=== PATIENT | female | born 1950 | race African-American/Black ===

== ENCOUNTER 2018-05-13 11:42 | Emergency (ER) | payer OTHER ==
[~2018-05-13] VITALS: Ht 170.2 cm; Wt 117.9 kg
[~2018-05-13 11:42] MED LIST: FLONASE 0.05%50 MCG NASAL; NORCO 5-325 TA1 EACH PO; SINGULAIR 10 MG10 M1 PO; VASOTEC10 MG PO; ZYRTEC10 MG PO
[2018-05-13 12:35] LABS: BASOPHILS 0.7 % (0.0-2.0); EOSINOPHILS 6.9 % (0.0-3.0); HEMATOCRIT 39.7 % (37.0-47.0); HEMOGLOBIN 13.2 gm/dL (12.0-15.0); LYMPHOCYTES 32.7 % (24.0-44.0); MCH 27.2 pg (26.0-34.0); MCHC 33.2 g/dL (28.0-37.0); MONOCYTES 8.7 % (1.0-8.0); PLATELET COUNT 205 thou/uL (150-400); RBC 4.84 mil/uL (4.20-5.00); RDW 14.6 % (10.5-14.5); WBC 9.8 thou/uL (4.0-11.0)
[2018-05-13 12:42] LABS: CALCIUM 9.4 mg/dL (8.5-10.1); CREATININE 0.9 mg/dL (0.6-1.0); POTASSIUM 3.6 mmol/L (3.5-5.1)
[2018-05-13 13:49] LABS: URINE BILIRUBIN NEGATIVE (Negative); URINE BLOOD NEGATIVE (Negative); URINE CLARITY CLEAR; URINE COLOR YELLOW; URINE GLUCOSE-RANDOM* NEGATIVE (Negative); URINE KETONES NEGATIVE (Negative); URINE LEUKOCYTES-REFLEX NEGATIVE (Negative); URINE NITRITE-REFLEX NEGATIVE (Negative); URINE PROTEIN (DIPSTICK) NEGATIVE (Negative); URINE SPECIFIC GRAVITY >= 1.030 (1.005-1.035); URINE UROBILINOGEN 0.2 E.U./dl (0.2-1.0)
[2018-05-13] MEDS ORDERED: NORFLEX100 MG PO (14:08)
[2018-05-13] MEDS ORDERED: MOBIC7.5 MG PO (14:08)
[2018-05-13 14:30] VITALS: BP 188/92
== END 2018-05-13 14:30 | disposition home or self-care (01) ==
LOC: ER 11:42
PROVIDERS: Nurse Practitioner Family
DX: S39.011A Strain of muscle, fascia and tendon of abdomen, initial encounter (principal); I10 Essential (primary) hypertension; W22.8XXA Striking against or struck by other objects, initial encounter; Y93.89 Activity, other specified; Y92.091 Bathroom in other non-institutional residence as the place of occurrence of the external cause; Y99.8 Other external cause status

== ENCOUNTER → 2018-09-25 | Outpatient (CLI) | payer OTHER ==
[~2018-09-25] VITALS: Ht 170.2 cm; Wt 119.3 kg
[~2018-09-25] MED LIST changes: +CENTRUM SILVER1 EAC4 PO; +MOBIC15 MG PO; +MOBIC7.5 MG PO; +NORFLEX100 MG PO; +TRAMADOL 50 MG50 MG PO; +VITAMIN D5000 UNIT PO
--- NOTE | ~2018-09-25 | P ---
[facility] [place] [address] PROCEDURE REPORT Name: CESIA FERNANDEZ Room #: [facility]#: [id number] Admission: 09/25/18 ������������������ Attend Phys: Noe Osuna MD Discharge: ������������������ Date of : 48 Report #: [id number] THIS REPORT FOR: //name// CC: Noe Eaton MD DATE OF SERVICE: 09/25/2018 OUTPATIENT COLONOSCOPY: BRIEF HISTORY: The patient is a 67-year-old woman for high risk screening colonoscopy due to history of colon polyp and family history of colon cancer. POSTOPERATIVE DIAGNOSIS: Normal high risk screening colonoscopy. MEDICATIONS: Deep sedation with propofol per anesthesia. SPECIMEN: None. ESTIMATED BLOOD LOSS: None. PROCEDURE: Colonoscopy to cecum and terminal ileum. FINDINGS: Prior to propofol sedation, procedure of colonoscopy discussed with the patient as well as potential risks and its complications. She indicates she understands and desires to proceed. DESCRIPTION OF PROCEDURE: With the patient in left lateral decubitus position, digital examination was completed, which revealed no abnormalities. Subsequently, the Olympus video colonoscope was introduced in the rectum, advanced under direct vision to the cecum. Done with minimal difficulty. The cecum was identified by the ileocecal valve and the appendiceal orifice. I was able to visualize the distal segment of terminal ileum, which was inspected and noted to be unremarkable. At that point, the scope was slowly withdrawn and careful circumferential views obtained including retroflexing the scope in the ascending colon. Upon slow withdrawal of the scope, the mucosa was inspected. There was frothy bilious material throughout the colon. This was cleared away with use of simethicone. Overall, good prep was obtained. The mucosa was within normal limits, normal vascular pattern and normal light reflex. No inflammatory or neoplastic lesions were seen. No polyps were identified. She had a normal endoscopic examination of her colon. The scope was withdrawn in the rectum. Upon retroflexion, no abnormalities were seen. Scope was withdrawn. The patient tolerated the procedure well. CONDITION OF THE PATIENT UPON DISCHARGE: Following procedure, the patient [address] [address] PROCEDURE REPORT Name: CESIA FERNANDEZ Room #: REG [facility] Lee#: [id number] Admission: 09/25/18 ������������������ Attend Phys: Noe Osuna MD Discharge: ������������������ Date of : 48 Report #: [id number] drowsy, arousable and conversant. She will be discharged home when fully ambulatory. INSTRUCTIONS TO THE PATIENT AND FAMILY AT THE TIME OF DISCHARGE: Advised the patient to follow high fiber diet and fiber supplementation. Suggest followup colon exam in 5 years due to her family history and personal history of colon polyps. Also, suggest weight loss as obesity is a risk factor for colon cancer. She will return to the care of Dr. Emma Eaton and return to see me as needed. ��������������������������������������������� ���������������������������������������� By: ��������������������������������������������� 1150 2105 Noe Osuna MD /nt
== END | disposition home or self-care (01) ==
LOC: GI 08:19
DX: Z12.11 Encounter for screening for malignant neoplasm of colon (principal); Z86.010 Personal history of colon polyps; Z80.0 Family history of malignant neoplasm of digestive organs; I10 Essential (primary) hypertension; Z90.710 Acquired absence of both cervix and uterus; Z98.890 Other specified postprocedural states; Z79.899 Other long term (current) drug therapy
CPT/HCPCS: 62110; 62900

== ENCOUNTER → 2018-10-02 | Outpatient (CLI) | payer OTHER | LOC: RAD 01:36 | DX: Z12.31 Encounter for screening mammogram for malignant neoplasm of breast (principal); M47.816 Spondylosis without myelopathy or radiculopathy, lumbar region; M48.061 Spinal stenosis, lumbar region without neurogenic claudication; M85.851 Other specified disorders of bone density and structure, right thigh; M85.852 Other specified disorders of bone density and structure, left thigh; Z78.0 Asymptomatic menopausal state; Z88.5 Allergy status to narcotic agent; Z88.8 Allergy status to other drugs, medicaments and biological substances ==

== ENCOUNTER 2021-01-08 11:57 | Emergency (ER) | payer OTHER ==
[~2021-01-08] VITALS: Ht 170.2 cm; Wt 86.2 kg
[2021-01-08] MEDS ORDERED: CARVEDILOL3.125 MG PO (12:14)
--- NOTE | 2021-01-08 12:18 | EKG ---
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
[2021-01-08 12:24] LABS: ABSOLUTE NEUTROPHILS 10.9 thou/uL (1.4-8.2); BASOPHILS 0.2 % (0.0-2.0); HEMATOCRIT 42.8 % (37.0-47.0); HEMOGLOBIN 13.5 gm/dL (12.0-15.0); LYMPHOCYTES 14.9 % (24.0-44.0); MCH 26.4 pg (26.0-34.0); MCHC 31.6 g/dL (28.0-37.0); MCV 83.5 fL (80.0-100.0); MONOCYTES 5.1 % (1.0-8.0); PLATELET COUNT 263 thou/uL (150-400); POLYS 79.8 % (36.0-66.0); RBC 5.13 mil/uL (4.20-5.00); RDW 14.7 % (10.5-14.5); WBC 13.7 thou/uL (4.0-11.0)
[2021-01-08 12:52] LABS: ANION GAP 8 mmol/L (7-16); BUN 14 mg/dL (7-18); CALCIUM 9.8 mg/dL (8.5-10.1); CHLORIDE 106 mmol/L (98-107); CO2 25 mmol/L (21-32); GLUCOSE 128 mg/dL (74-106); POTASSIUM 4.2 mmol/L (3.5-5.1); SODIUM 139 mmol/L (136-145)
[2021-01-08 13:01] LABS: TROPONIN-I <0.06 ng/mL (<0.06)
[2021-01-08 15:20] LABS: URINE BILIRUBIN NEGATIVE (Negative); URINE BLOOD NEGATIVE (Negative); URINE CLARITY CLEAR; URINE COLOR YELLOW; URINE GLUCOSE-RANDOM* NEGATIVE (Negative); URINE KETONES NEGATIVE (Negative); URINE LEUKOCYTES-REFLEX NEGATIVE (Negative); URINE NITRITE-REFLEX NEGATIVE (Negative); URINE PROTEIN (DIPSTICK) NEGATIVE (Negative); URINE SPECIFIC GRAVITY 1.025 (1.005-1.035); URINE UROBILINOGEN 0.2 E.U./dl (0.2-1.0)
[2021-01-08 17:18] VITALS: BP 177/62
== END 2021-01-08 17:20 | disposition home or self-care (01) ==
LOC: ER 11:57
PROVIDERS: Nurse Practitioner
DX: I10 Essential (primary) hypertension (principal); R51.9 Headache, unspecified; Z90.710 Acquired absence of both cervix and uterus; Z98.890 Other specified postprocedural states; Z88.5 Allergy status to narcotic agent

== ENCOUNTER 2021-07-20 16:08 | Inpatient (IN) | payer OTHER ==
[~2021-07-20] VITALS: Ht 170.2 cm; Wt 118.4 kg
[~2021-07-20 16:08] MED LIST changes: +CARVEDILOL3.125 MG PO
[2021-07-20 16:12] VITALS: BP 105/41
[2021-07-20] MEDS ORDERED: APAP W/CODEINE1 TA2 PO (16:32)
[2021-07-20] MEDS ORDERED: ASA81BEC PO (16:33)
[2021-07-20] MEDS ORDERED: CELECOXIB100 MG PO (16:33)
[2021-07-20] MEDS ORDERED: NORVASC10 MG PO (16:33)
[2021-07-20] MEDS ORDERED: ENALAPRIL MALEA20 MG PO (16:34)
[2021-07-20] MEDS ORDERED: CATAPRES-TTS 20.2 MG PO (16:34)
[2021-07-20] MEDS ORDERED: ARTHRITIS PAIN100 GM TOP (16:34)
[2021-07-20] MEDS ORDERED: HYDROCHLOROTHIA25 M1 PO (16:35)
[2021-07-20] MEDS ORDERED: PROTONIX40 M2 PO (16:35)
[2021-07-20] MEDS ORDERED: LOPRESSOR50 MG PO (16:35)
[2021-07-20] MEDS ORDERED: EZALLOR SPRINKL20 MG PO (16:35)
[2021-07-20 16:37] LABS: ABSOLUTE NEUTROPHILS 5.8 thou/uL (1.4-8.2); BASOPHILS 0.8 % (0.0-2.0); EOSINOPHILS 5.2 % (0.0-3.0); HEMATOCRIT 38.1 % (37.0-47.0); HEMOGLOBIN 12.6 gm/dL (12.0-15.0); MCH 27.2 pg (26.0-34.0); MCV 82.4 fL (80.0-100.0); MONOCYTES 10.1 % (1.0-8.0); PLATELET COUNT 210 thou/uL (150-400); POLYS 53.9 % (36.0-66.0); RBC 4.63 mil/uL (4.20-5.00); RDW 14.3 % (10.5-14.5); WBC 10.7 thou/uL (4.0-11.0)
[2021-07-20 16:44] LABS: CALCIUM 9.5 mg/dL (8.5-10.1); CREATININE 1.6 mg/dL (0.6-1.0); POTASSIUM 3.8 mmol/L (3.5-5.1)
[2021-07-20 16:55] LABS: ALBUMIN 2.9 g/dL (3.4-5.0); TOTAL BILIRUBIN 0.3 mg/dL (0.2-1.0); TOTAL PROTEIN 7.3 g/dL (6.4-8.2)
[2021-07-20 18:03] LABS: URINE COLOR YELLOW
[2021-07-20 18:04] LABS: URINE CLARITY SL CLOUDY; URINE PROTEIN (DIPSTICK) TRACE (Negative)
[2021-07-20 18:05] LABS: ICTOTEST (BILI CONFIRMATORY) Negative (Negative); URINE BILIRUBIN NEGATIVE (Negative); URINE GLUCOSE-RANDOM* NEGATIVE (Negative); URINE KETONES NEGATIVE (Negative)
[2021-07-20 18:06] LABS: URINE BLOOD NEGATIVE (Negative); URINE LEUKOCYTES-REFLEX 1+ (Negative); URINE NITRITE-REFLEX NEGATIVE (Negative); URINE UROBILINOGEN 0.2 E.U./dl (0.2-1.0)
[2021-07-20 18:13] LABS: SQUAMOUS 0-3 Few /LPF (0-3)
[2021-07-20 18:14] LABS: URINE RBC None Seen /HPF (NONE SEEN); URINE WBC-REFLEX 6-15 Few /HPF (0-5)
[2021-07-20 18:17] LABS: CRYSTALS None Seen /LPF (None Seen); HYALINE CASTS 0-3 Few /LPF (None Seen)
[2021-07-20 20:08] VITALS: BP 134/56
[2021-07-21] MEDS ORDERED: METOPROLOL SUC100 MG PO (00:04)
[2021-07-21] MEDS ORDERED: ROSUVASTATIN CA20 MG PO (00:06)
[2021-07-21] MEDS ORDERED: LEXAPRO 10 MG T10 M1 PO (00:07)
[2021-07-21] MEDS ORDERED: ENALAPRIL MALEA20 MG PO (00:07)
[2021-07-21 06:10] LABS: CALCIUM 8.9 mg/dL (8.5-10.1); CREATININE 1.2 mg/dL (0.6-1.0); POTASSIUM 4.3 mmol/L (3.5-5.1)
--- NOTE | 2021-07-21 07:18 | EKG ---
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
--- NOTE | 2021-07-21 14:18 | NUR ---
Met with patient who is holding in ER and is inpatient status. Patient reports she has SOA. Patient reports her PCP is Emma Eaton. She was once at [facility] but moved to [place]. 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 Patient reports she has been feeling more weak at home. She reports she was at [facility] and felt dizzy. She uses the scooter at [facility]. She went to meat section and attempted to call a few times before she could dial the number correctly. She reports her hands get shaky at times. Dtr came to [facility] and subsequently took patient to ER. Patient resides in independent home with all needs on one level. She has a walker for long distance and uses cane in home. She reports she is not eating well as she does not have endurance to cook. If she has a meal she will eat one thing throughout the day. She reports 2 dtrs supportive but they have families and are busy. She does not drive, dtr takes her to apts. In May was doing outpatient therapy at [facility]. She was having blood pressure issues when arrived for apt. She was taken to PCP who admitted to [facility]. Patient reports no hx of HH or inpatient rehab in past. She reports as of lately feeling weak. Sp with dtr gave her information on [facility] and local [facility] info. Gave patient [employer] for resources. Therapy ordered for eval. Luna following
[2021-07-21 14:25] VITALS: BP 129/53
[2021-07-21 14:52] VITALS: BP 129/53
[2021-07-21 15:02] VITALS: BP 129/58
[2021-07-21 15:23] VITALS: BP 119/51
--- NOTE | 2021-07-21 16:12 | NUR ---
ASSUMED PT CARE FROM ER AT 1525. PT IS ALERT & ORIENTED X4. PT HAS IV SITE ON RAC 20 GAUGE. PT IS ON ROOM AIR. PT USES CANE TO AMBULATE. FINISHED ADMISSION. NO C/O OF NAUSEA, VOMITING AND PAIN. PT ON THE BED, BED ON THE LOWEST POSITION, SIDE RAILS UP, CALL LIGHT WITHIN REACH. WILL CONTINUE TO MONITOR PT. FOLLOW POC.
[2021-07-21 20:04] VITALS: BP 126/48
--- NOTE | 2021-07-22 03:02 | NUR ---
PT DENIES ANY SYNCOPAL EPISODE. MOVED TO 447 FROM 444 FOR TELE MONITORING. SR ON TELEMETRY. WALKING USING CANE TO THE BATHROOM. ROOM AIR. DENIES ANY CHEST PAIN OR TIGHTNESS. VOIDING OKAY.BP STABLE.CALLS WITH NEEDS.
[2021-07-22 05:23] LABS: CALCIUM 8.7 mg/dL (8.5-10.1); POTASSIUM 3.7 mmol/L (3.5-5.1)
[2021-07-22 05:26] LABS: HEMOGLOBIN 11.4 gm/dL (12.0-15.0); MCH 27.2 pg (26.0-34.0); MCHC 32.6 g/dL (28.0-37.0); MCV 83.3 fL (80.0-100.0); RBC 4.2 mil/uL (4.20-5.00); RDW 13.8 % (10.5-14.5); WBC 9.5 thou/uL (4.0-11.0)
[2021-07-22 05:40] VITALS: BP 142/66
[2021-07-22 07:00] VITALS: BP 121/58
[2021-07-22 11:00] VITALS: BP 135/48
[2021-07-22] MEDS ORDERED: CEPHALEXIN500 MG PO (11:51)
--- NOTE | 2021-07-22 11:55 | NUR ---
ASSUMED PT CARE THIS AM. PT IS ALERT & ORIENTED X4. PT HAS IV SITE ON RAC SALINE LOCKED. PT IS ON ROOM AIR. PT IS ON TELE MONITOR ON. PT USES CANE TO AMBULATE. PT TOLERATED DIET AND MEDICATION WELL. NO C/O OF PAIN, NAUSEA AND VOMITING.
--- NOTE | 2021-07-22 12:20 | NUR ---
Discussed during los with the attending physician. anticipated dc home today. Cm visited with bam at bedside, she voiced that her daughter will be bringing her home today.
[2021-07-22 12:21] VITALS: BP 135/48
== END 2021-07-22 14:43 | disposition home or self-care (01) | DRG 689 ==
LOC: ER 16:08 → 4S 19:47 → EROBS 19:47 → 4S 07-21 15:00
PROVIDERS: Emergency Medicine; Nurse Practitioner Family; ADMIT Hospitalist; ATTEND Hospitalist
DX: N39.0 Urinary tract infection, site not specified (principal); N17.0 Acute kidney failure with tubular necrosis; Z68.41 Body mass index [BMI] 40.0-44.9, adult; R00.1 Bradycardia, unspecified; E78.5 Hyperlipidemia, unspecified; I95.9 Hypotension, unspecified; K21.9 Gastro-esophageal reflux disease without esophagitis; M19.90 Unspecified osteoarthritis, unspecified site; F32.A Depression, unspecified; E66.9 Obesity, unspecified; M54.32 Sciatica, left side; I10 Essential (primary) hypertension; Z20.822 Contact with and (suspected) exposure to COVID-19; Z90.710 Acquired absence of both cervix and uterus; Z79.899 Other long term (current) drug therapy; Z79.82 Long term (current) use of aspirin; Z88.5 Allergy status to narcotic agent; Z91.048 Other nonmedicinal substance allergy status; Z83.3 Family history of diabetes mellitus; Z80.9 Family history of malignant neoplasm, unspecified; Z82.49 Family history of ischemic heart disease and other diseases of the circulatory system; Z82.3 Family history of stroke; Z83.438 Family history of other disorder of lipoprotein metabolism and other lipidemia; Z83.49 Family history of other endocrine, nutritional and metabolic diseases; Z87.81 Personal history of (healed) traumatic fracture
CPT/HCPCS: 10100